=== PATIENT | male | born 1970 | race Caucasian/White ===

== ENCOUNTER 2023-10-19 14:27 | Outpatient (CLI) | payer OTHER, SELFPAY | END 2023-10-19 14:28 | disposition home or self-care (01) | LOC: AMB 10-20 17:27 | PROVIDERS: Visit Provider Family Medicine | DX: R06.02 Shortness of breath (principal) | CPT/HCPCS: A0425; A0427 ==

== ENCOUNTER 2023-10-19 14:55 | Emergency (ER) | payer OTHER, SELFPAY ==
[2023-10-19] VITALS (18 sets, daily range): BP systolic 156–166; BP diastolic 76–96; PULSE 55–70; RESP 18; TEMP 36.5; O2SAT 96–99; BMI 23.6
--- NOTE | 2023-10-19 16:09 | ED.GENADULT ---
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 Had chemo therapy 1st does 6 days ago last . He did feel like the weather for the 1st few days after taking his new treatments. He was started on immune checkpoint inhibitors, also dexamethasone. He says he is on 4 medications but can not recall their names. Today he was at work at [employer] in [place] and felt dizzy and short of breath. He says this afternoon he just started to feel his heart beating fast and heavy. He felt short of breath and dizzy like he might faint. He was not having vertigo. No chest pain. He has not had any cough. No fever. No vomiting or diarrhea. He did say he was maybe ceiling little bit nauseous so took some prescribed Compazine today. No black or bloody stools. Although he has hemophilia he has not had any bleeding events for over 3 years and has not noticed any recent bleeding or black or bloody stools. No known infection. No fever. He does have a history of sometimes feeling his heart racing when he is anxious. However it has never been like today. He did have laboratory workup last week when he had his last checkup at the [facility]. He is able to show me some was lab taps through his [employer] helen. He had a CBC with a hemoglobin of 14.1. He had leukopenia with a white count of 2.8 but that appears to be his baseline for multiple recent checks. Platelet count was normal. Thyroid and TSH were normal. Metabolic profile, sodium, kidney function were normal save for creatinine slightly elevated at 1.16. Blood sugar normal. LFTs normal. His kappa light chains and serum protein levels were elevated. Related Data Home Medications Medication Instructions Recorded Confirmed acyclovir 400 mg tablet 400 mg PO DAILY 10/19/23 10/19/23 cyanocobalamin (vitamin B-12) 1,000 mcg PO DAILY 10/19/23 10/19/23 1,000 mcg capsule daratumumab 20 mg/mL intravenous IV 10/19/23 solution lenalidomide 25 mg capsule 25 mg PO DAILY 10/19/23 10/19/23 prochlorperazine maleate 10 mg 10 mg PO Q12H PRN 10/19/23 10/19/23 tablet (Compazine) Allergies Allergy/AdvReac Type Severity Reaction Status Date / Time aspirin Allergy Mild Verified 10/19/23 15:03 Sulfa (Sulfonamide Allergy Mild Rash Verified 10/19/23 15:03 Antibiotics) Exam Narrative: Exam Narrative: Constitutional: Appears well-developed and well-nourished. Alert. Conversant and polite but says he can feel his heart racing right now even though he has sinus rhythm with a rate in the low 60s on the monitor. He thinks he might be anxious. Mother attentively at his side. Non toxic. HENT: Head: Atraumatic. Nose: Nose normal. Mouth/Throat: Oral mucosa is clear and slightly dry but not desiccated or cracked. no trismus. Pharynx normal. Tonsils symmetric. No tonsillar enlargement, erythema, or exudate. Eyes: Conjunctivae normal. EOM normal. Pupils equal, round, and reactive to light. No scleral icterus. Neck: Normal range of motion. Neck supple. No tracheal deviation present. Cardiovascular: Normal rate, regular rhythm. No gallop. No friction rub. No murmur heard. Symmetric radial artery pulses Pulmonary/Chest: Effort normal. No stridor. No respiratory distress. No wheezes. No rales. No rhonchi . No tenderness. Abdominal: Soft. Bowel sounds normal. No distension. No mass. No tenderness. No rebound. No guarding. Musculoskeletal: RUE: Normal range of motion. No tenderness. No deformity LUE: Normal range of motion. No tenderness. No deformity RLE: Normal range of motion. No edema. No tenderness. No deformity LLE: Normal range of motion. No edema. No tenderness. No deformity Endo: No thyromegaly Neurological: Alert and oriented to person, place, and time. Normal strength. CN II-VII intact. No sensory deficit. GCS eye subscore is 4. GCS verbal subscore is 5. GCS motor subscore is 6. Normal coordination Skin: Skin is warm and dry. No rash noted. No pallor. Normal capillary refill. Psychiatric: Normal mood. Normal affect. Const: Vital Signs, click to edit/add: Vital Signs - 24 hr 10/19/23 15:06 10/19/23 15:11 10/19/23 16:24 Temperature 97.7 F Pulse Rate 62 62 Pulse Rate [Pulse Oximeter] 70 Respiratory Rate 18 Blood Pressure Blood Pressure [Ri ght Upper Arm] 166/85 H Pulse Oximetry 99 99 98 Oxygen Delivery Me thod Room Air 10/19/23 16:30 10/19/23 16:47 10/19/23 17:10 Temperature Pulse Rate 62 59 L 60 Pulse Rate [Pulse Oximeter] Respiratory Rate Blood Pressure Blood Pressure [Ri ght Upper Arm] Pulse Oximetry 97 98 96 Oxygen Delivery Me thod 10/19/23 17:15 10/19/23 17:30 10/19/23 17:45 Temperature Pulse Rate 61 64 64 Pulse Rate [Pulse Oximeter] Respiratory Rate Blood Pressure Blood Pressure [Ri ght Upper Arm] Pulse Oximetry 98 98 99 Oxygen Delivery Me thod 10/19/23 18:00 10/19/23 18:17 10/19/23 18:30 Temperature Pulse Rate 61 58 L Pulse Rate [Pulse Oximeter] Respiratory Rate Blood Pressure 156/76 H Blood Pressure [Ri ght Upper Arm] Pulse Oximetry 99 99 Oxygen Delivery Me thod 10/19/23 18:45 10/19/23 19:04 10/19/23 19:17 Temperature Pulse Rate 58 L 60 55 L Pulse Rate [Pulse Oximeter] Respiratory Rate Blood Pressure Blood Pressure [Ri ght Upper Arm] Pulse Oximetry 99 99 97 Oxygen Delivery Me thod 10/19/23 19:30 10/19/23 19:49 10/19/23 19:59 Temperature Pulse Rate 61 63 Pulse Rate [Pulse Oximeter] Respiratory Rate Blood Pressure 159/96 H Blood Pressure [Ri ght Upper Arm] Pulse Oximetry 98 98 Oxygen Delivery Me thod Course Course ED Course: Recheck-patient is stable. Still no arrhythmia. Feeling a little bit better after IV fluids and Ativan. Reevaluation(s) Reevaluation #1: Recheck-consult placed to [facility] updated this patient has brother. Reevaluation #2: Recheck-still no return call from [facility]. Awaiting consult. Updated patient and his and his brother. Reevaluation #3: Recheck-still awaiting callback from [facility]. Has been a couple of hours now. Patient feeling better. At this point seems reasonable to discharge home. He actually has an appointment to see his heme Onc team tomorrow morning at the [facility] at 8:00 a.m., 12 hours from now. Consultations Consultation #1: Recheck-at 10:45 p.m. [facility] called back, Dr. Sheridan We discussed the patient's presenting symptoms and workup. She agrees that it was reasonable to have sent the patient home and for have him follow-up tomorrow morning in clinic. Vital Signs Vital signs: Initial Vital Signs Temperature 97.7 F 10/19/23 15:06 Temperature Source Temporal Artery Scan 10/19/23 15:06 Pulse Rate 70 10/19/23 15:06 Pulse Rhythm Regular 10/19/23 15:06 Respiratory Rate 18 10/19/23 15:06 Blood Pressure 166/85 H 10/19/23 15:06 Blood Pressure Mean 112 H 10/19/23 15:06 Blood Pressure Position Sitting 10/19/23 15:06 Pulse Oximetry 99 10/19/23 15:06 Oxygen Delivery Method Room Air 10/19/23 15:06 Vital Signs Temperature 97.7 F 10/19/23 15:06 Pulse Rate 70 10/19/23 15:06 Respiratory Rate 18 10/19/23 15:06 Blood Pressure 166/85 H 10/19/23 15:06 Pulse Oximetry 99 10/19/23 15:06 Oxygen Delivery Method Room Air 10/19/23 15:06 Temperature 97.7 F 10/19/23 15:06 Pulse Rate 63 10/19/23 19:49 Respiratory Rate 18 10/19/23 15:06 Blood Pressure 159/96 H 10/19/23 19:59 Pulse Oximetry 98 10/19/23 19:49 Oxygen Delivery Method Room Air 10/19/23 15:06 Medications Administered Medications: Discontinued Medications Generic Name Dose Route Start Last Admin Trade Name Freq PRN Reason Stop Dose Admin Sodium Chloride 1,000 mls @ 1,000 mls/hr 10/19/23 16:45 10/19/23 17:01 0.9 % Sodium Chloride 1000 Ml IV 10/19/23 17:44 1,000 mls/hr .Q1H CAM Administration Lorazepam 0.5 mg 10/19/23 16:34 10/19/23 17:01 Lorazepam 2 Mg/Ml Inj IVP 10/19/23 16:35 0.5 mg ONCE ONE Administration Medical Decision Making MDM Narrative Medical decision making narrative: This patient presents to the ER today for evaluation of feeling short of breath, somewhat lightheaded and dizzy. Differential was broad. Although he has been feeling some palpitations, there is no evidence for any ectopy or other cardiac dysrhythmia. We considered possible ACS, however workup with EKG and troponin is negative. Given time since onset of symptoms, I do not think the patient needs to be admitted for further sets of enzymes. EKG shows no evidence for pericarditis. Clinical presentation not suggestive of myocarditis. Chest x-ray shows no evidence for pneumonia, pneumothorax, pulmonary edema, pleural effusion, rib fracture, cardiomegaly. Mediastinum is normal on the x-ray. The patient has no ripping or tearing pain through to the back and has symmetric pulses on exam, no other acute neuro findings so I doubt aortic dissection. Risk of radiation and contrast exposure would outweigh the benefit of CT angiogram. We considered PE for this patient. Although he has active malignancy with multiple myeloma, he is not tachycardic, hypoxic. Overall he is low risk for PE but not 0 risk. D-dimer is obtained and is normal. Therefore will hold off on CT PA. No wheezing or bronchospasm to suggest COPD/asthma. No signs of chest wall cellulitis, shingles, injury. The patient and his mother feel that there could be some component of anxiety contributing to his symptoms. Also he had been feeling unwell after starting on his new medications for multiple myeloma sewed dehydration could also be on the differential. Treated with fluids and anxiolytics here in the ER. With reasonable clinical confidence, I think the patient is safe for outpatient follow up. He has an appointment tomorrow morning, in about 12 hours, with his oncology team at the [facility]. He will keep that appointment and follow-up. Differential would still include potential side effects of his medications for his multiple myeloma. Discussed return precautions. Questions answered. Patient voices comfort with the plan. Of note, we did make an effort to contact this patient's came/Onc team for consultation while he was here in the ER. Unfortunately there was a several hour delay between our consultation request in the call back. I was not able to discussed with the oncology team until after the patient was discharged. They would agree with plan for discharge and outpatient follow-up tomorrow morning. Lab Data Labs: Lab Results 10/19/23 Range/Units 17:00 WBC 2.81 L (4.50-11.00) K/uL RBC 4.12 L (4.30-5.90) m/uL Hgb 13.6 (13.5-17.5) gm/dL Hct 38.1 (37.0-53.0) % MCV 93 (80-100) fL MCH 33 (26-34) pg MCHC 36 (32-36) gm/dL RDW Coeff of Alison 12.0 (11.5-15.5) % Plt Count 219 (140-440) K/uL Neut % (Auto) 70.8 (42.0-72.0) % Lymph % (Auto) 20.6 (20-44) % [place] % (Auto) 6.4 (0.0-11.0) % Eos % (Auto) 1.4 (0.0-7.0) % Baso % (Auto) 0.4 (0.0-3.0) % Neut # (Auto) 2.00 (1.7-7.0) K/uL Lymph # (Auto) 0.60 L (0.90-2.90) K/uL [place] # (Auto) 0.20 (0.00-0.90) K/UL Eos # (Auto) 0.00 (0.00-0.50) K/uL Baso # (Auto) 0.00 (0.00-0.30) K/uL Abs Immat Gran (auto) 0.00 (0.00-0.30) K/uL Imm/Tot Granulo (auto) 0.4 % D-Dimer Quant (PE/DVT) 0.32 (0.00-0.50) ug/ml Sodium 142 (135-149) mmol/L Potassium 3.8 (3.6-5.1) mmol/L Chloride 104 (96-114) mmol/L Carbon Dioxide 28 (20-32) mmol/L Anion Gap 10 (7-15) mEq/L BUN 12 (7-30) mg/dL Creatinine 1.0 (0.5-1.5) mg/dL Estimated Creat Clear 83.47 Estimated GFR 89 ml/min Glucose 106 (60-115) mg/dL Lactate 1.8 (0.5-1.9) mmol/L Calcium 9.5 (8.4-10.6) mg/dL Total Bilirubin 0.5 (0.1-1.5) mg/dL AST 34 (12-35) U/L ALT 56 H (4-50) U/L Alkaline Phosphatase 53 (40-150) U/L Troponin I < 0.01 L (0.01-0.04) ng/mL Total Protein 10.6 H (6.0-8.3) g/dL Albumin 4.7 (3.3-5.0) g/dL Discharge Plan Discharge Clinical Impression: Heart palpitations, Dizziness Patient Disposition: Home, Self-Care Condition: Stable Instructions: Heart Palpitations (ED), Dizziness (ED) Additional Instructions: As we discussed, please follow-up with your heme/Onc team at the [facility] tomorrow at 8:00 a.m.. If you have any worsening symptoms tonight or any other problems, come back to the ER right away to be rechecked. Prescriptions: No Action prochlorperazine maleate [Compazine] 10 mg tablet 10 mg PO Q12H PRN acyclovir 400 mg tablet 400 mg PO DAILY lenalidomide 25 mg capsule 25 mg PO DAILY Rx Instructions: swallow whole with glass of water; do not open, crush, chew , break, or dissolve cyanocobalamin (vitamin B-12) 1,000 mcg capsule 1,000 mcg PO DAILY daratumumab 20 mg/mL solution IV Follow Up/Referrals: Provider,Not a Local [Primary Care Provider] - Stand Alone Forms: [employer] Info Instructions
--- NOTE | 2023-10-19 16:33 | XR_ITS ---
Patient: ROGER FUENTES Facility:?[facility] Patient ID:?[id number] Site Patient ID:?[id number]. Site :?[id number] Study:?XRay-Chest 2V-10/19/2023 4:44:35 PM Ordering Physician:ILEANA Final Report: Indication: Shortness of breath, dizziness, palpitations Technique: PA/lateral chest Comparison: None Findings/impression : Lungs are symmetrically inflated and clear. Trachea is midline. Cardiac silhouette is normal. Bones and soft tissues are unremarkable. Dictated by Bk Arora MD @ 10/19/2023 5:10:22 PM Signed by:?Bk Arora MD @10/19/2023 5:10:22 PM (Electronic Signature)
[2023-10-19] MEDS: 0.9 % SODIUM CHLORIDE 1000 ml 1,000 ML IV (17:01)
[2023-10-19] MEDS: LORazepam 2 MG/ML inj 0.5 MG IVP (17:01)
[2023-10-19 17:06] LABS: Basophils Percent Auto 0.4 % (0.0-3.0); Eosinophils Percent Auto 1.4 % (0.0-7.0); Hematocrit 38.1 % (37.0-53.0); Hemoglobin* 13.6 gm/dL (13.5-17.5); Immature Granulocytes Pct Auto 0.4 %; Lymphocytes Percent Auto 20.6 % (20-44); Mean Corpuscular HGB Conc 36 gm/dL (32-36); Mean Corpuscular Hemoglobin 33 pg (26-34); Mean Corpuscular Volume 93 fL (80-100); Monocytes Percent Auto 6.4 % (0.0-11.0); Neutrophils Percent Auto 70.8 % (42.0-72.0); Platelet Count* 219 K/uL (140-440); Red Blood Count 4.12 m/uL (4.30-5.90); White Blood Count* 2.81 K/uL (4.50-11.00)
[2023-10-19 17:09] LABS: Lactate* 1.8 mmol/L (0.5-1.9); Slide Review Reflex No
[2023-10-19 17:22] LABS: Albumin* 4.7 g/dL (3.3-5.0); Chloride* 104 mmol/L (96-114)
[2023-10-19 17:23] LABS: Potassium* 3.8 mmol/L (3.6-5.1); Sodium* 142 mmol/L (135-149)
[2023-10-19 17:25] LABS: Anion Gap 10 mEq/L (7-15); Aspartate Amino Transferase* 34 U/L (12-35); Bilirubin Total* 0.5 mg/dL (0.1-1.5); Carbon Dioxide* 28 mmol/L (20-32); Est. Creatinine Clearance* 83.47; Estimated Glomerular Filt Rate 89 ml/min; Total Protein* 10.6 g/dL (6.0-8.3)
[2023-10-19 17:26] LABS: Alanine Aminotransferase* 56 U/L (4-50); Alkaline Phosphatase* 53 U/L (40-150); Blood Urea Nitrogen* 12 mg/dL (7-30); Calcium* 9.5 mg/dL (8.4-10.6); Glucose* 106 mg/dL (60-115)
[2023-10-19 17:28] LABS: D Dimer Quantitative* 0.32 ug/ml (0.00-0.50)
[2023-10-19 17:38] LABS: Troponin I* < 0.01 ng/mL (0.01-0.04)
== END 2023-10-19 20:02 | disposition home or self-care (01) ==
PROVIDERS: Emergency Provider Emergency Medicine
DX: R00.2 Palpitations (principal); R42 Dizziness and giddiness
CPT/HCPCS: 36415; 71046; 80053; 83605; 84484; 85025; 85379; 93005; 96374; 99284; J2060; J7030